=== PATIENT | female | born 1950 | race Caucasian/White ===

== ENCOUNTER 2023-05-19 12:47 | Emergency (ER) | payer MEDICARE, OTHER, SELFPAY ==
[2023-05-19 12:49] VITALS: BP 154/42; PULSE 90; RESP 18; TEMP 36.2; O2SAT 99; BMI 36.2
--- NOTE | 2023-05-19 13:01 | EKG12_ITS ---
Test Reason : CP Blood Pressure : / mmHG Vent. Rate : 075 BPM Atrial Rate : 075 BPM P-R Int : 158 ms QRS Dur : 148 ms QT Int : 404 ms P-R-T Axes : 044 -59 014 degrees QTc Int : 451 ms Normal sinus rhythm Right bundle branch block Left anterior fascicular block Bifascicular block Abnormal ECG Confirmed by GEMINI COLLINS, IVAN ([id number]), book or script editor SERJIO BRIONES ([id number]) on 05/20/2023 1:27:05 PM Referred By: AR/KATIUSKA Confirmed By:IVAN SINGLETARY MD
--- NOTE | 2023-05-19 13:17 | RAD_ITS ---
STUDY: X-RAY CHEST REASON FOR EXAM: Female, 72 years old. Chest pain TECHNIQUE: PA and lateral views of the chest. COMPARISON: None. FINDINGS: EKG electrodes are seen. The lungs are clear and expanded. There is no demonstrated pleural abnormality. Normal size heart. Normal mediastinum and vanessa. Normal visualized pulmonary arteries. There is atherosclerotic tortuosity of the aortic arch and descending thoracic aorta. There are degenerative changes of the visualized thoracic spine. Normal visualized ribs, clavicles, and shoulders. There is no demonstrated abnormality of the visualized soft tissue structures of the upper abdomen. RAD/Chest PA and Lateral IMPRESSION: No acute abnormality is seen. Electronically Signed: Connor Ramírez MD at 13:36 EDT ,
[2023-05-19 13:20] LABS: Absolute Lymphocyte Count 1.88 X10^3/uL (0.83-4.51); Absolute Neutrophil Count 10.2 X10^3/uL (2.0-7.7); Basophil# 0.04 X10^3/uL; Basophil% 0.3 % (0-1); Eosinophil# 0.44 X10^3/uL; Eosinophils% 3.3 % (0-5); Hematocrit 33.6 % (37-47); Hemoglobin 11.2 g/dL (12.0-15.0); Lymphocyte # 1.88 X10^3/ul (0.83-4.51); Lymphocyte % 14.2 % (19-41); Mean Corp Hgb Conc 33.3 g/dL (32-36); Mean Corpuscular Hgb 28.7 pg (27.0-32.0); Mean Corpuscular Volume 86.2 fL (81-99); Monocyte# 0.58 X10^3/uL; Monocyte% 4.4 % (0-10); NRBC Flagged by Analyzer 0 % (0-5); Neutrophil # 10.24 X10^3/uL (2.7-7.7); Neutrophil % 77.3 % (47-70); Platelet Count 381 K/mm3 (150-450); RBC Distribution Width CV 12.8 % (11.6-14.6); RBC Distribution Width SD 39.9 fl (35.1-43.9); White Blood Count 13.2 K/mm3 (4.4-11.0)
[2023-05-19 13:43] LABS: Anion Gap 6 (5-15); BUN 27 mg/dL (7-18); BUN/Creat Ratio 22.3 RATIO (10-20); Calcium,Total 9.5 mg/dL (8.5-10.1); Chloride 105 mmol/L (98-107); Creatinine, Serum 1.21 mg/dL (0.55-1.02); EST Glomerular Filtration Rate 46 mL/min (>60); Est Glom Filt Rate - Afr Amer 56 mL/min (>60); Estimated Creatinine Clearance 36.29 ml/min; Glucose 139 mg/dL (74-106); Potassium 3.7 mmol/L (3.5-5.1); Sodium Level 136 mmol/L (136-145); Troponin-I HS 8 pg/mL (3.0-54.0)
--- NOTE | 2023-05-19 13:50 | ED.VIS.CHEST ---
HPI History of Present Illness Chief Complaint: Chest Pain Informant: patient Narrative Narrative: Patient is a 72-year-old female with history of diabetes mellitus presenting with left-sided chest pain. Patient states it is an ache. She states been present for about 3 weeks. She notes initially was more of an ache that she felt at nighttime. She thought maybe it was a muscle. She notes she does log a lot of things around at baseline but denies any injury or obvious aggravating event. She denies any associated chest pain, pleuritic discomfort and cannot really reproduce the pain. Is tried [id number] ibuprofen and Tylenol. Spoke with her diabetic doctor about about a week ago who was unsure what to think and had told her she needs to drink more water based on her labs that day. She called her PCP who recommend she come to the ER for further evaluation. Patient is never anything like this before. She does have some chronic bilateral leg swelling which is worse at the end of the day and when it is hot out. She notes she did recently have a trip to [place] but denies any history of DVT or PE. Denies any difficulty breathing, cough or other respiratory/URI symptoms. Denies any associated nausea, vomiting or abdominal discomfort. No other complaints or concerns at this time. PFSH PFSH Home Medications tramadol 50 mg tablet 50 mg PO QHS PRN pain #7 tabs 05/19/23 [Rx Last Taken Unknown] Allergy/AdvReac Type Severity Reaction Status Date / Time codeine Allergy PALPITATION Verified 05/19/23 12:50 S Social History Smoking Status: Current every day smoker tobacco type: cigarettes EXAM Physical Exam Const Vital Signs: 05/19/23 12:49 05/19/23 13:15 05/19/23 14:00 Temperature 97.1 F L Temperature Source Temporal Pulse Rate 90 67 Respiratory Rate 18 15 Blood Pressure 154/42 H Blood Pressure Mean 79 Pulse Ox 99 95 Oxygen Delivery Method Room Air Room Air Room Air Positive well nourished and well developed General Appearance ED: well developed and NAD HEENT Reports moist mucous membranes Eyes PERRL Neck no JVD Chest Wall inspection of chest normal and palpation of chest normal Chest Narrative: Patient points to her left anterior chest wall just below the level of the nipple as the area of pain however it is not reproducible with direct palpation. No overlying rash or other skin changes appreciated. Chest: Negative for tenderness Resp normal respiratory effort and clear to auscultation bilaterally Cardio regular rate, regular rhythm and no murmurs Peripheral Pulses: pulses 2+ throughout GI normal to inspection, nondistended, normoactive bowel sounds, soft to palpation and non-tender Extremity normal to inspection General Extremety ED: Yes edema General Extremity: edema bilateral lower extremity Details: trace Neuro oriented x3 Sensorium / Orientation: awake and alert Motor Exam: Negative for general weakness Psych mental status grossly normal Skin no rashes or lesions noted and no wounds MDM MDM MDM Narrative Medical decision making narrative: Patient is evaluated for 3 weeks of chest wall pain has been more constant for the past 16 hours or so. Due to the constant nature of the pain I feel that a single high-sensitivity troponin and EKG sufficient to rule out ACS. EKG does not show any acute ischemic changes and her high since he troponin is normal at 8. Patient does have recent travel and is over the age of 50 so I did obtain a D-dimer. This is normal for age (0.6). Chest x-ray 2 views reviewed by myself as well as radiology does not show any acute process including an infiltrate. Her CBC is remarkable for mild leukocytosis of 13.2 which is nonspecific, mild anemia with a hemoglobin 11.2 again nonspecific and she has a creatinine of 1.21. Patient does tell me she has been told that she has some underlying kidney injuries I suspect this is baseline. Clinically she does not appear dehydrated. Differential for her chest pain includes was not limited to pleurisy, pulmonary emboli, pericarditis, pneumonia and less likely ACS as well as chest wall pain. She does not have an overlying rash elicitation for shingles. Work-up is largely unremarkable and of low suspicion for more severe pathology at this time. I feel that she can be discharged safely home. Will be given a short course of tramadol as she is not supposed to take NSAIDs and is already maxed out Tylenol with no relief of her pain. She states that she has tolerated this in the past. Is given return precautions. Encouraged follow-up with her primary care doctor. Is counseled that her white blood cell count was mildly elevated and should she develop any infectious symptoms such as fever, productive cough or other concerns she should return to the emergency room. Patient verbalizes agreement and understanding with this plan. History & Record Review Additional record(s) reviewed:: No prior records Lab Data Attestation: I reviewed the patient's lab results. Labs: Laboratory Results - last 24 hr 05/19/23 13:09 WBC 13.2 H RBC 3.90 L Hgb 11.2 L Hct 33.6 L MCV 86.2 MCH 28.7 MCHC 33.3 RDW Std Deviation 39.9 RDW Coeff of Naresh 12.8 Plt Count 381 MPV 9.0 Immature Gran % (Auto) 0.500 Neut % (Auto) 77.3 H Lymph % (Auto) 14.2 L [place] % (Auto) 4.4 Eos % (Auto) 3.3 Baso % (Auto) 0.3 Absolute Neuts (auto) 10.2 H Absolute Lymphs (auto) 1.88 Nucleated RBC % 0 D-Dimer Quant (PE/DVT) 0.60 H* Sodium 136 Potassium 3.7 Chloride 105 Carbon Dioxide 25.0 Anion Gap 6 BUN 27 H Creatinine 1.21 H Estim Creat Clear Calc 36.29 Est GFR (MDRD) Af Amer 56 L Est GFR (MDRD) Non-Af 46 L BUN/Creatinine Ratio 22.3 H Glucose 139 H Calcium 9.5 Troponin I High Sens 8 Radiography Chest X-Ray - ED: 2 View, Read by Radiologist and No Acute Disease Diagnostic Testing: Clinical Impression(s) from Imaging Studies Chest X-Ray 05/19/23 13:17 IMPRESSION: No acute abnormality is seen. Electronically Signed: Connor Ramírez MD at 13:36 EDT , Rhythm Strip Rhythm Strip: Sinus Rhythm Rate: 75 Ectopy: None EKG Initial EKG: Attestation: I personally reviewed and interpreted this EKG as follows: Interpretation: Sinus Rhythm Comments: Normal sinus rhythm rate of 75 bpm Left axis Right bundle violette block with a left anterior fascicular block Normal QTc Normal ST segments Nonspecific T wave inversion in lead III No prior EKG available for comparison Discharge Plan Triage Chief Complaint: Chest Pain ED Provider: Radha Peraza Dx/Rx/DC Orders Clinical Impression: Acute left-sided thoracic back pain Instructions: ED Chest Pain, Uncertain Cause Prescriptions: New tramadol 50 mg tablet 50 mg PO QHS PRN (Reason: pain) Qty: 7 0RF Primary Care Provider: Devin Perry Referrals: Devin Perry, [Primary Care Provider] - Activity Restrictions/Additional Instructions: The exact cause of your pain is not clear however your work-up was largely normal. Your blood sugar was mildly elevated as well as your white blood cell count. You do not have a fever, cough or other symptoms consistent with an acute pneumonia/infection so I do not think he requires antibiotics. You been prescribed a short course of pain medicine to help you sleep at night. Remember, do not take more than 1000 mg (2 x 500 Tylenol tablets) every 8 hours so you do not damage her liver with Tylenol. Disposition Disposition: Home, Self Care Discharge Date/Time: 05/19/23 15:40
[2023-05-19 14:00] VITALS: PULSE 67; RESP 15; O2SAT 95
== END 2023-05-19 15:40 | disposition home or self-care (01) ==
PROVIDERS: Emergency Provider Emergency Medicine; PCP Family Medicine; Visit Provider Emergency Medicine
DX: M54.6 Pain in thoracic spine (principal); E11.9 Type 2 diabetes mellitus without complications; D64.9 Anemia, unspecified; F17.210 Nicotine dependence, cigarettes, uncomplicated
CPT/HCPCS: 71046; 80048; 84484; 85025; 85379; 93005; 99284; A4216

== ENCOUNTER 2024-05-05 06:44 | Day surgery (SDC) | payer MEDICARE, OTHER, SELFPAY ==
[2024-05-05] VITALS (8 sets, daily range): BP systolic 119–146; BP diastolic 65–75; PULSE 68–77; RESP 17–66; TEMP 36.1–36.6; O2SAT 97–100; BMI 35.9
--- NOTE | 2024-05-05 | IMM_PTH ---
PATIENT: LI PERSAUD LOC: EN U#:[id number] AGE/SX: 73/F ROOM: RE05/05/[address]: Dr. Kenny Dawn MD : 1950 BED: DIS: 05/05/2024 SPEC #: [id number] RECD: 05/08/24 11:41 STATUS: DARCI REQ #: [id number] RADHA: 05/05/24 00:[address]: Kenny Dawn DEPT: IMMUNOHISTOCHEMISTRY RECD BY: [place] ENTERED: 05/08/24 11:42 SP TYPE: IMMUNO OTHR DR: Dr. Devin Perry, DO Tissues: A - Descending colon Procedures: SMA (add) CD31 (add) CD34 (add) CK8 (add) DESMIN (add) KI-67 (add) Vimentin (add) Pankeratin (initial) S-100 (add) PHYSICIAN & INSTITUTION [facility] [id number] SPECIMEN INFORMATION: Tissue Source: A- Proximal descending colon polyp Clinical Info: Encounter for screening for malignant neoplasm of colon Specimen Number: [id number] CPT code: 79813,03060o4 METHODOLOGY: Deparaffinized sections of prefer/formalin-fixed tissue or PAP/DQ stained slides are incubated with monoclonal/polyclonal antibodies/oligonucleotide probes. Localization is made via biotin free immunoperoxidase method. Appropriate controls are performed and reacted as expected. Results on target cell population are indicated in the following table: RESULTS: ANTIBODY / CLONE RESULT Block A AE1-3 (AE1/AE3/PCK26) negative CK8 (52mezoW57) negative Vimentin (V9) positive CD31 (ANGELIC/70A) negative CD34 (QBEnd-10) negative Actin (1A4) positive Desmin (CE-R-11) positive S-100 (4C4.9) negative Ki-67 (30-9) positive, very low, <1% These tests were developed and their performance characteristics determined by [facility]. They may not have been cleared or approved by the U.S. Food and Drug Administration. The FDA has determined that such clearance or approval is not necessary. The above immunohistochemical/dualISH markers are ordered and reviewed by the Pathologist. INTERPRETATION: A. Proximal descending colon polyp, polypectomy: Subucosal leiomyoma. TAYLOR/ 05/09/2024
--- NOTE | 2024-05-05 | COLBX_PTH ---
PATIENT: LI PERSAUD LOC: EN U#:[id number] AGE/SX: 73/F ROOM: RE05/05/[address]: Dr. Kenny Dawn MD : 1950 BED: DIS: 05/05/2024 SPEC #: [id number] RECD: 05/05/24 12:53 STATUS: DARCI SORENSEN #: [id number] RADHA: 05/05/24 00:[address]: Kenny Dawn DEPT: SURGICAL PATHOLOGY RECD BY: John Mo ENTERED: 05/05/24 13:17 SP TYPE: COLON BX OTHR DR: Dr. Devin Perry, DO Tissues: A - Descending colon B - Descending colon C - Descending colon D - Rectum, NOS Procedures: Surgery Specimen Level IV HEADER OPERATION: Colonoscopy and polypectomy PRE-OP DIAGNOSIS: Encounter for screening for malignant neoplasm of colon TISSUE SUBMITTED: A- Proximal descending colon polyp x2, B- Middle descending colon polyp, C- Distal descending colon polyp, D- Rectal polyp MICROSCOPIC DIAGNOSIS A. Proximal descending colon polyp x2, polypectomy: Submucosa leiomyoma (0.7cm in greatest dimension). Fragments of tubular adenoma. See comment. B. Polyp mid descending colon, polypectomy: A fragment of colonic mucosa with marked cautery artifacts, suggestive of inflammatory polyp. C. Distal descending colon polyp, polypectomy: Inflammatory polyp. D. Rectal polyp, polypectomy: Tubular adenoma. / 05/08/2024 COMMENT A. Immunohistochemistry ([id number]) supports the above diagnosis of submucosal leiomyoma. MICROSCOPIC DESCRIPTION Slides are reviewed. GROSS DESCRIPTION A. Received in fixative is one container labeled with the patient's name and designated Proximal descending colon polyps x2. The specimen consists of a singleton pink polyp measuring 0.7 x 0.6 x 0.5cm. Also present in the container are three smaller pieces of singleton soft tissue measuring in aggregate 0.4 x 0.2 x 0.1cm. Larger polyp is inked, serially sectioned and reveals singleton solid cut surfaces. The entire specimen is submitted in one cassette. B. Received in fixative is one container labeled with the patient's name and designated Polyp mid descending colon. The specimen consists of one irregular fragment of light singleton soft tissue that measures 0.3 x 0.2 x 0.1 cm. The specimen is totally submitted in one cassette. C. Received in fixative is one container labeled with the patient's name and designated Distal descending colon polyp. The specimen consists of a pink-red polyp measuring 0.9 x 0.6 x 0.5 cm. The presumed base is inked. The polyp is bisected and submitted entirely in one cassette. D. Received in fixative is one container labeled with the patient's name and designated Rectal polyp. The specimen consists of a singleton pink polyp measuring 0.6 x 0.4 x 0.3cm. The entire specimen is submitted in one cassette. Alex 05/05/2024 TC:1 CPT: 40391q6
[2024-05-05] MEDS: Lactated Ringers 1,000 ML 15 ML IV (07:18)
--- NOTE | 2024-05-05 07:31 | PRE.ANES_ITS ---
ASA Classification* ASA Classification ASA Classification: 2 Assessment & Plan Anesthesia* Anesthesia Assessment Anesthesia Assessment: Discussed sedation and/or anesthesia options, risks, benefits, and alternatives with patient/parents/legal guardian/POA. Questions invited. The patient/parents/legal guardian/POA seems to understand and agrees to proceed with anesthesia plan. Reviewed the physical assessment, medical history, allergy history and patient home medications list prior to surgery/procedure/anesthetic and documented any changes. Performed airway and anesthesia risk assessments. Anesthesia Type Anesthesia Type: MAC (see written pre anesthesia record for full assessment) Anesthesia Focused Assessment* Temperature: 97.8 F Pulse Rate: 68 Blood Pressure: 119/65 Respiratory Rate: 17 Pulse Ox: 98 Airway Assessment Mouth opens: >3 cm Mallampati Score: II Focused Labs Anesthesia Preop lab: CBC WBC 13.2 K/mm3 (4.4-11.0) H 05/19/23 13:09 RBC 3.90 M/mm3 (4.2-5.4) L 05/19/23 13:09 Hgb 11.2 g/dL (12.0-15.0) L 05/19/23 13:09 Hct 33.6 % (37-47) L 05/19/23 13:09 Plt Count 381 K/mm3 (150-450) 05/19/23 13:09 CHEMISTRY Potassium 3.7 mmol/L (3.5-5.1) 05/19/23 13:09 Sodium 136 mmol/L (136-145) 05/19/23 13:09 BUN 27 mg/dL (7-18) H 05/19/23 13:09 Creatinine 1.21 mg/dL (0.55-1.02) H 05/19/23 13:09 Glucose 139 mg/dL (74-106) H 05/19/23 13:09 COAG Pre-Assessment Diagnosis/Proposed Procedure Planned Operative Procedure(s): COLONOSCOPY Anesthesia History 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 When Was Last Pacemaker Check QUESTION #4 FULL TEXT: You/Your Family Experience fever (hyperthermia) with Anesthesia Last Oral Intake Last Oral intake: Last Oral Intake NPO since 05:30 05/05/24 07:19 Meds taken in AM with sips of Yes 05/05/24 07:19 water? 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 Female Yes 04/28/24 13:22 HX of Motion Sickness No 04/28/24 13:22 HX of N/V After Surgery No 04/28/24 13:22 Non-Smoker No 04/28/24 13:22 Duration of Surgery greater No 04/28/24 13:22 than 60 minutes Number of Risk Factors 1 04/28/24 13:22 PONV Score Low Risk 04/28/24 13:22 Height & Weight Height & Weight: Anesthesia: Height & Weight Height 5 ft 3 in 05/05/24 07:19 Weight: 92 kg 05/05/24 07:19 Body Mass Index (BMI) 35.9 05/05/24 07:19 Respiratory Assessment Respiratory Assessment - mixer crane operator: Respiratory Tract Infection Hx - mixer crane operator Hx Respiratory Tract Infection No 04/28/24 13:22 STOP Sleep Apnea STOP Sleep Apnea - mixer crane operator: STOP Sleep Apnea - mixer crane operator Hx Hypertension Yes: CONTROLLED WITH MEDS 04/28/24 13:22 Hx Sleep Apnea Yes 04/28/24 13:22 CPAP No 04/28/24 13:22 BIPAP No 04/28/24 13:22 Do you snore loudly (louder than talking or can be heard Do you often feel tired/ fatigued/ sleepy during daytime? Has anyone observed you stop breathing during sleep? STOP Results Positive 04/28/24 13:22 QUESTION #5 FULL TEXT : Do you snore loudly (louder than talking or can be heard through closed doors)? 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 Specify any problems Hx of Preganancy in last 3 N/A 04/28/24 13:22 Months Nurse Filling Out Transfusion [email or web address] 04/28/24 13:22 & Questions: Date: 04/28/24 04/28/24 13:22 Time: 13:25 04/28/24 13:22 Patient unable to answer at this time (ie. 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: /Reproductive Hx- mixer crane operator Hx Now Gestational Age (in weeks): EDC: Hx Hx Para Hx Section SAB Active Medications Active Medications: Current Medications Generic Name Dose Route Start Last Admin Trade Name Freq PRN Reason Stop Dose Admin Lactated Ringer's 1,000 mls @ 15 mls/hr 05/05/24 07:00 05/05/24 07:18 IV 15 mls/hr .Q48H PRIYANK Administration PFSH Medical History Wears hearing aid Wears glasses Depression Alcohol use Heartburn Type 2 diabetes mellitus with diabetic nephropathy Back pain RANGEL (obstructive sleep apnea) Overactive bladder Hyperlipidemia Arthritis Fatigue IDDM (insulin dependent diabetes mellitus) HTN (hypertension) Home Medications ?Medication ?Instructions ?Recorded ?Last Taken ?Type tramadol 50 mg tablet 50 mg PO QHS PRN pain #7 tabs 05/19/23 Unknown Rx amlodipine 2.5 mg tablet 2.5 mg PO DAILY 04/24/24 Unknown History aspirin 325 mg tablet 325 mg PO DAILY 04/24/24 Unknown History atorvastatin 20 mg tablet 20 mg PO DAILY 04/24/24 Unknown History cholecalciferol (vitamin D3) 25 25 mcg PO DAILY 04/24/24 Unknown History mcg (1,000 unit) capsule duloxetine 30 mg capsule,delayed 30 mg PO BID 04/24/24 Unknown History release insulin aspart U-100 100 unit/mL 16 unit subcut TIDWMEAL 04/24/24 Unknown History (3 mL) subcutaneous pen (Novolog FlexPen U-100 Insulin aspart) insulin glargine 100 unit/mL (3 56 unit subcut QHS 04/24/24 Unknown History mL) subcutaneous pen (Basaglar KwikPen U-100 Insulin) lisinopril 20 mg tablet 20 mg PO DAILY 04/24/24 Unknown History omega 3-dha 200 mg-epa 300 mg-fish 1 cap PO BID 04/24/24 Unknown History oil 1,000 mg capsule oxybutynin chloride 10 mg 10 mg PO DAILY 04/24/24 Unknown History tablet,extended release 24 hr triamterene 75 1 tab PO DAILY 04/24/24 Unknown History mg-hydrochlorothiazide 50 mg tablet Allergy/AdvReac Type Severity Reaction Status Date / Time codeine Allergy PALPITATION Verified 05/05/24 07:18 S metformin Allergy Increased Verified 05/05/24 07:18 Creatinine, decreased kidney function Surgical History Hx laparoscopic cholecystectomy H/O: Social History household members: spouse current occupational status: retired Smoking Status: Current every day smoker tobacco type: cigarettes substance use type: does not use Review of Systems (Anesthesia) ROS Narrative System reviewed and no additional complaints, except as documented.
--- NOTE | 2024-05-05 07:59 | HP.PCM_ITS ---
HPI - General HPI Narrative LI PERSAUD, is a 73 F who presents for screening colonoscopy. Patient has never had a colonoscopy in the past. She denies abdominal pain or blood in stool. She has no family history of colon cancer. [facility] Medical History Wears hearing aid Wears glasses Depression Alcohol use Heartburn Type 2 diabetes mellitus with diabetic nephropathy Back pain RANGEL (obstructive sleep apnea) Overactive bladder Hyperlipidemia Arthritis Fatigue IDDM (insulin dependent diabetes mellitus) HTN (hypertension) Home Medications ?Medication ?Instructions ?Recorded ?Last Taken ?Type tramadol 50 mg tablet 50 mg PO QHS PRN pain #7 tabs 05/19/23 Unknown Rx amlodipine 2.5 mg tablet 2.5 mg PO DAILY 04/24/24 Unknown History aspirin 325 mg tablet 325 mg PO DAILY 04/24/24 Unknown History atorvastatin 20 mg tablet 20 mg PO DAILY 04/24/24 Unknown History cholecalciferol (vitamin D3) 25 25 mcg PO DAILY 04/24/24 Unknown History mcg (1,000 unit) capsule duloxetine 30 mg capsule,delayed 30 mg PO BID 04/24/24 Unknown History release insulin aspart U-100 100 unit/mL 16 unit subcut TIDWMEAL 04/24/24 Unknown History (3 mL) subcutaneous pen (Novolog FlexPen U-100 Insulin aspart) insulin glargine 100 unit/mL (3 56 unit subcut QHS 04/24/24 Unknown History mL) subcutaneous pen (Basaglar KwikPen U-100 Insulin) lisinopril 20 mg tablet 20 mg PO DAILY 04/24/24 Unknown History omega 3-dha 200 mg-epa 300 mg-fish 1 cap PO BID 04/24/24 Unknown History oil 1,000 mg capsule oxybutynin chloride 10 mg 10 mg PO DAILY 04/24/24 Unknown History tablet,extended release 24 hr triamterene 75 1 tab PO DAILY 04/24/24 Unknown History mg-hydrochlorothiazide 50 mg tablet Allergy/AdvReac Type Severity Reaction Status Date / Time codeine Allergy PALPITATION Verified 05/05/24 07:18 S metformin Allergy Increased Verified 05/05/24 07:18 Creatinine, decreased kidney function Surgical History Hx laparoscopic cholecystectomy H/O: Social History household members: spouse current occupational status: retired Smoking Status: Current every day smoker tobacco type: cigarettes substance use type: does not use Past Medical/Surgical History Planned Operation Planned Operative Procedure(s): COLONOSCOPY Previous Hospitalizations/Surgeries HX Hospitalizations: No Any Problems With Anesthesia: No You/Your Family Experience Fever (Hyperthermia) With Anes: No Cholinesterase deficiency: No Cardiovascular Hx Hypertension: Yes (CONTROLLED WITH MEDS) Respiratory Hx Sleep Apnea: Yes CPAP: No BIPAP: No Hx Respiratory Tract Infection/Cold (presently): No Result (for STOP score): Positive Smoking Status: Current every day smoker Neurological Does patient have nerve stimulator: No Miscellaneous Recent Exposure to Contagious Disease: No Allergies codeine Allergy (Verified 05/05/24 07:18) PALPITATIONS metformin Allergy (Verified 05/05/24 07:18) Increased Creatinine, decreased kidney function Increased Creatinine Discharge After D/C, Where Do you Plan to Go: Return Home Vital Signs Vital Signs Vital Signs: 05/05/24 07:19 05/05/24 07:19 05/05/24 07:31 Temperature 97.8 F 97.8 F Temperature Source Temporal Pulse Rate 68 68 Respiratory Rate 17 17 Respiratory Pattern Normal Blood Pressure 119/65 119/65 Blood Pressure Mean 83 Blood Pressure Source Monitor Blood Pressure Position Semi-Fowlers Blood Pressure Location Right Arm Pulse Ox 98 98 Oxygen Delivery Method Room Air Weight Weight: 202 lb 13.204 oz Body Mass Index (BMI) 35.9 Physical Exam Const alert and oriented x3 HEENT normocephalic Eyes PERRL Resp normal respiratory effort and normal air movement Cardio regular rate and regular rhythm GI soft to palpation, non-tender and non-distended Extremity normal to inspection Assessment & Plan Assessment/Plan (1) Encounter for screening for malignant neoplasm of colon: PLAN: I explained endoscopy in detail to the patient. I explained the risks including but not limited to stroke or heart attack with anesthesia, perforation of the GI tract, bleeding, infection. I explained that any of these could necessitate further emergency surgery. The patient understands and all questions were answered sufficiently. The patient wishes to proceed with procedure. Kenny Dawn MD Pager: [facility] [address] [place] [address], [address] [place] [address] Office: Surgery Risks - Colonoscopy Risks Include but are not Limited To: Risks include but are not limited to: Bleeding, perforation requiring further surgery, inability to complete colonoscopy requiring barium enema.
--- NOTE | 2024-05-05 08:54 | OP.CCLET_ITS ---
05/05/2024 Devin Perry Re : Colonoscopy procedure for Declan Sanchezr [place] This procedure was performed on Sunday, May 05, 2024. My impressions and recommendations are as follows: Impressions : - Five polyps in the rectum, in the proximal descending colon, in the mid descending colon and in the distal descending colon, removed with a hot snare. Resected and retrieved. - The examination was otherwise normal on direct and retroflexion views. Recommendations : - Discharge patient to home. - Resume previous diet. - Continue present medications. - Await pathology results. - Repeat colonoscopy in 3 years for surveillance. My findings are described in the full procedure note, which is enclosed. If I can be of further assistance, please feel free to contact me at Doctor phone number(s): , Work: . Sincerely, Kenny Dawn MD 05/05/2024 8:53:44 AM This report has been signed electronically.
--- NOTE | 2024-05-05 08:54 | OP.COLON_ITS ---
Patient Name: Declan Conner Procedure Date: 05/05/2024 8:04 AM Date of : 1950 Age: 73 Procedure: Colonoscopy Indications: Screening for colorectal malignant neoplasm Providers: Kenny Dawn MD Referring MD: Devin Perry Medicines: Propofol per Anesthesia Patient Profile: This is a 73 year old female. Refer to note in patient chart for documentation of history and physical. Last Colonoscopy: none. The patient's first colonoscopy is today. Complications: No immediate complications. Estimated blood loss: Minimal. Procedure: Pre-Anesthesia Assessment: - Prior to the procedure, a History and Physical was performed, and patient medications and allergies were reviewed. The patient's tolerance of previous anesthesia was also reviewed. The risks and benefits of the procedure and the sedation options and risks were discussed with the patient. All questions were answered, and informed consent was obtained. Prior Anticoagulants: The patient has taken no anticoagulant or antiplatelet agents. After reviewing the risks and benefits, the patient was deemed in satisfactory condition to undergo the procedure. After I obtained informed consent, the scope was passed under direct vision. Throughout the procedure, the patient's blood pressure, pulse, and oxygen saturations were monitored continuously. The Colonoscope was introduced through the anus and advanced to the cecum, identified by appendiceal orifice and ileocecal valve. The colonoscopy was performed without difficulty. The patient tolerated the procedure well. The quality of the bowel preparation was good. The ileocecal valve, appendiceal orifice, and rectum were photographed. Scope In: 8:17:27 AM Scope Withdrawal Time 0 hours 26 minutes 21 seconds Scope Out: 8:50:23 AM Total Procedure Duration Time 0 hours 32 minutes 56 seconds Findings: Five polyps were found in the rectum, proximal descending colon, mid descending colon and distal descending colon. These polyps were removed with a hot snare. Resection and retrieval were complete. The exam was otherwise without abnormality on direct and retroflexion views. Impression: - Five polyps in the rectum, in the proximal descending colon, in the mid descending colon and in the distal descending colon, removed with a hot snare. Resected and retrieved. - The examination was otherwise normal on direct and retroflexion views. Recommendation: - Discharge patient to home. - Resume previous diet. - Continue present medications. - Await pathology results. - Repeat colonoscopy in 3 years for surveillance. Procedure Code(s): --- Professional --- 78417, Colonoscopy, flexible; with removal of tumor(s), polyp(s), or other lesion(s) by snare technique Diagnosis Code(s): --- Professional --- Z12.11, Encounter for screening for malignant neoplasm of colon D12.8, Benign neoplasm of rectum D12.4, Benign neoplasm of descending colon CPT copyright 2021 [employer]. All rights reserved. The codes documented in this report are preliminary and upon teletype operator review may be revised to meet current compliance requirements. Kenny Dawn MD 05/05/2024 8:53:44 AM This report has been signed electronically. Number of Addenda: 0 Note Initiated On: 05/05/2024 8:04 AM
--- NOTE | 2024-05-05 08:57 | PCM.POST.ANE ---
Anesthesia: Postop Eval I Current Vital Signs Temperature: 97 F Pulse Rate: 73 Blood Pressure: 143/75 Respiratory Rate: 66 Pulse Ox: 100 Oxygen Delivery Method: Room Air Assessment Airway patent: Yes Spontaneous unlabored respirations: Yes Mental status: Awake and Calm nausea: No Vomiting: No Anesthesia Complication: No Fluid Hydration Crystalloid volume administer (ml): 700 Total IV fluid infused: 700 Progress Note Anesthesia document: Postop Eval 1 completed: Yes
[2024-05-05 08:58] LABS: Bedside Glucose 206 mg/dL (74-106)
--- NOTE | 2024-05-05 10:30 | PCM.POSTANE2 ---
Anesthesia Postop Eval I Sum Postop Eval Completion status Anesthesia document: Postop Eval 1 completed: Yes Anesthesia Postop Eval I Summary Anesthesia Postop Eval I Summary: Anesthesia Postop Eval I: Assessment Summary Airway patent Yes 05/05/24 09:03 Spontaneous unlabored Yes 05/05/24 09:03 respirations Mental status Awake,Calm 05/05/24 09:03 nausea No 05/05/24 09:03 Vomiting No 05/05/24 09:03 Anesthesia Postop Eval I: Fluid Summary Crystalloid volume administer 700 05/05/24 09:03 (ml) Colloids volume administered ( ml) Blood Product volume administered (ml) Total IV fluid infused 700 05/05/24 09:03 Anesthesia Postop Eval I: Summary Notes Anesthesia Complication No 05/05/24 09:03 Anesthesia Complication Comment: Post-operative progress note Anesthesia: Postop Eval II Evaluation Mental status: Awake Pain Level: 0 nausea: No Vomiting: No
== END 2024-05-05 09:32 | disposition home or self-care (01) ==
LOC: EN 06:57 → AC 06:58
PROVIDERS: PCP Family Medicine; Referring Provider Family Medicine; Visit Provider Surgery
PROC: 0DJD8ZZ Inspection of Lower Intestinal Tract, Via Natural or Artificial Opening Endoscopic (ICD-10-PCS; CPT 45378; principal; 2024-05-05 07:55)
DX: Z12.11 Encounter for screening for malignant neoplasm of colon (principal); E11.21 Type 2 diabetes mellitus with diabetic nephropathy; Z79.4 Long term (current) use of insulin; E78.5 Hyperlipidemia, unspecified; D12.8 Benign neoplasm of rectum; D12.4 Benign neoplasm of descending colon; D21.4 Benign neoplasm of connective and other soft tissue of abdomen; I10 Essential (primary) hypertension; F17.210 Nicotine dependence, cigarettes, uncomplicated; G47.33 Obstructive sleep apnea (adult) (pediatric); Z79.82 Long term (current) use of aspirin; Z79.899 Other long term (current) drug therapy
CPT/HCPCS: 45385; 82962; 88305; 88341; 88342; J7120; J2405